=== PATIENT | female | born 1990 | race Caucasian/White ===

== ENCOUNTER 2021-04-24 04:12 | Emergency (ER) | payer OTHER ==
[2021-04-24 06:19] LABS: HEMOGLOBIN 13.2 gm/dl (12.3-15.3); RED BLOOD COUNT 4.36 M/UL (4.00-5.10); WHITE BLOOD COUNT 8.8 K/UL (4.5-11.0)
[2021-04-24 06:46] LABS: BUN/CREATININE RATIO 18 (0-10)
[2021-04-24] MEDS ORDERED: ATIVAN1 MG PO (07:21)
== END 2021-04-24 07:35 | disposition home or self-care (01) ==
LOC: ER1 04:12
PROVIDERS: Family Medicine
DX: G47.00 Insomnia, unspecified (principal); Z88.0 Allergy status to penicillin
CPT/HCPCS: 36415; 71045; 80053; 82550; 82553; 83874; 84439; 84443; 84484; 85025; 93005; 99285